=== PATIENT | female | born 1970 | race Caucasian/White ===

== ENCOUNTER 2019-06-13 16:50 | Emergency (ER) | payer BC ==
--- OUTSIDE RECORDS SUMMARY | 2019-06-13 17:11 | XMS REPORT | Continuity of Care Document ---
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 Provider Date Irritable bowel syndrome Blake Ji MD Onset: 09/21/2012 Female infertility Blake Ji MD Onset: 09/21/2012 Allergic rhinitis Ann Pendleton MD Onset: 02/26/2011 Gastric ulcer without hemorrhage, Ruthann Rowland PA-C Onset: 2018 without perforation AND without obstruction Gastro-esophageal reflux disease with Ruthann Rowland PA-C Onset: 05/18 esophagitis O/E: inspection of blood Ruthann Rowland PA-C Onset: 02/23/2019 Diarrhea Ruthann Rowland PA-C Onset: 02/23/2019 Gastroesophageal reflux disease Ruthann Rowland PA-C Onset: 02/23/2019 Social History Type Date Description Comments Sex Unknown Tobacco Use Start: Unknown End: Unknown Patient is a former smoker Smoking Status Reviewed: 05/18/19 Patient is a former smoker Allergies, Adverse Reactions, Alerts Description No Known Drug Allergies Medications Active Medications SIG Qnty Indications Ordering Provider Date Omeprazole Take 1 capsule by yanira Page 04/28/2019 20mg mouth daily. Take MD Delvis Capsules DR 30-60 minutes before a meal. Simbrinza Instill 1 Drop In Unknown 1-0.2% Each Eye Two Suspension Times A Day Immunizations CPT Code Status Date Vaccine Lot # 66029 Given 11/06/2014 MMR Vaccine, Live, For Subcutaneous Use 87963 Given 06/14/2014 Influenza Virus Vaccine, Quadrivalent, Split, Preservative Free 83828 Given 07/20/2013 Influenza Virus Vaccine Split Virus Use For Individual 3Yr Older 08198 Given 08/02/2012 Influenza Virus Vaccine Split Virus Use For Individual 3Yr Older 98890 Given 06/28/2010 Influenza Virus Vaccine Split Virus Use For Individual 3Yr Older 23751 Given 11/02/2007 Td Preservative Free For Use In Individuals 7 Yrs Or Older 27792 Given 1995 Tetanus & Diptheria Toxoids Vaccine For Intracmuscular Use Vital Signs Date Vital Result Comment 05/18/2019 9:14am Height 62.5 inches 5'2.50" Weight 121.00 lb BP Systolic 101 mmHg BP Diastolic 81 mmHg Heart Rate 83 /min BMI (Body Mass Index) 21.8 kg/m2 02/23/2019 10:43am Height 62.5 inches 5'2.50" Weight 122.00 lb BP Systolic 90 mmHg BP Diastolic 60 mmHg Heart Rate 76 /min BMI (Body Mass Index) 22.0 kg/m2 Results Test Date Facility Test Result H/L Range Note Laboratory test 04/20/2019 [facility] RESULT 1 finding Pathology Order BELOW Disaccharidase 04/20/2019 [facility] Lactase 57.9 2 Analysis Sucrase 69.1 3 Maltase 188.6 4 Palatinase 11.2 5 Interpretation See Comment 6 Laboratory test 04/20/2019 [facility] [place]otest SEE RESULT 7 finding BELOW CBC Auto Diff 02/09/2019 [facility] White Blood Count 4.1 10^3/uL Normal 3.5- 10.8 Red Blood Count 4.56 10^6/uL Normal 3.70-4.87 Hemoglobin 12.8 g/dL Normal 12.0-16.0 Hematocrit 39 % Normal 35-47 Mean Corpuscular Volume 84 fL Normal 80-97 Mean Corpuscular Hemoglobin 28 pg Normal 27-31 Mean Corpuscular HGB Conc 33 g/dL Normal 31-36 Red Cell Distribution Width 14 % Normal 10.5-15 Platelet Count 276 10^3/uL Normal 150-450 Mean Platelet Volume 7.2 fL Low 7.4-10.4 Abs Neutrophils 2.9 10^3/uL Normal 1.5-7.7 Abs Lymphocytes 0.7 10^3/uL Low 1.0-4.8 Abs Monocytes 0.3 10^3/uL Normal 0-0.8 Abs Eosinophils 0.1 10^3/uL Normal 0-0.6 Abs Basophils 0.0 10^3/uL Normal 0-0.2 Abs Nucleated RBC 0.0 10^3/uL Granulocyte % 72.2 % Lymphocyte % 16.8 % Monocyte % 7.9 % Eosinophil % 2.5 % Basophil % 0.6 % Nucleated Red Blood Cells % 0.0 Comp Metabolic Panel 02/09/2019 [facility] Sodium 140 mmol/L Normal 135-145 Potassium 4.1 mmol/L Normal 3.5-5.0 Chloride 105 mmol/L Normal 101-111 Co2 Carbon Dioxide 29 mmol/L Normal 22-32 Anion Gap 6 mmol/L Normal 2-11 Glucose 80 mg/dL Normal 70-100 Blood Urea Nitrogen 9 mg/dL Normal 6-24 Creatinine 0.71 mg/dL Normal 0.51-0.95 BUN/Creatinine Ratio 12.7 Normal 8-20 Calcium 8.8 mg/dL Normal 8.6-10.3 Total Protein 5.9 g/dL Low 6.4-8.9 Albumin 3.6 g/dL Normal 3.2-5.2 Globulin 2.3 g/dL Normal 2-4 Albumin/Globulin Ratio 1.6 Normal 1-3 Total Bilirubin 0.50 mg/dL Normal 0.2-1.0 Alkaline Phosphatase 72 U/L Normal 34-104 Alt 13 U/L Normal 7-52 Ast 17 U/L Normal 13-39 Egfr Non- 87.1 >60 Egfr 105.4 >60 8 Laboratory test finding 02/09/2019 [facility] Magnesium 1.8 mg/dL Low 1.9-2.7 TSH (Thyroid Stim Horm) 1.11 mcIU/mL Normal 0.34-5.60 Free T4 (Free Thyroxine) 0.81 ng/dL Normal 0.61-1.12 Vitamin B12 369 pg/mL Normal 180-914 9 Vitamin D Total 25(Oh) 26.5 ng/mL Normal 20-50 10 1 SEE RESULT BELOW Name: LISETTE AGUILLON : [address]: Kaylee Edmondson MD Acct: [id number] Unit: [id number] AGE: 48 Location: ENDO Re04/20/19 SEX: F Status: REG REF SPEC: [id number] YVETTE: 04/20/19- SUBM DR: Kaylee Merino MD REQ: [id number] RECD: 04/20/191143 STATUS: FREDDY HOFFMAN DR: Ann Pendleton MD _ ORDERED: LEVEL 4/5 FINAL DIAGNOSIS 1. Duodenum, biopsy: -- Benign small intestinal mucosa with no significant pathologic abnormalities. -- No evidence of villous blunting or increased intraepithelial lymphocytes. 2. Duodenum, biopsy: -- Focal active enteritis. -- No evidence of chronicity. -- No evidence of villous blunting or increased intraepithelial lymphocytes. 3. Stomach, biopsy: -- Body-type gastric mucosa with moderate chronic gastritis; see comment. -- Fundic gland polyp. 4. Esophagus, distal, biopsy: -- Benign squamous mucosa with moderate erosive changes. -- No columnar component present for evaluation. -- No evidence of eosinophilic esophagitis. 5. Esophagus, mid, biopsy: -- Benign squamous mucosa with mild erosive changes. -- No evidence of eosinophilic esophagitis. COMMENT: An H. pylori immunohistochemical stain is pending for specimen 3 and the results will be reported in an addendum. CONTINUED ON NEXT PAGE DEPARTMENT OF PATHOLOGY, [address] [place] [address] Nicholas Oliveros M.D. Director [facility] # [id number] RUN DATE: 04/21/19 [facility] LAB LIVE PAGE 2 Patient: LISETTE AGUILLON [id number] (Continued) CLINICAL HISTORY (Continued) CLINICAL HISTORY Diarrhea; gastroesophageal reflux disease; family history of celiac POST-OPERATIVE DIAGNOSIS EGD: esophagus ??? normal; regular gastroesophageal junction mid and distal biopsy; gastric ??? few polyps; 3-8 mm biopsy; ZANE test; duodenum ??? few erosions; flattening with subtle scalloping; biopsy; disacc GROSS DESCRIPTION 1. The specimen is received in formalin labeled, Duodenum Nodule Biopsy, and consists of two bella-pink irregular soft tissue fragments measuring 0.3 x 0.2 x 0.1 cm and 0.7 x 0.2 x 0.1 cm which are submitted entirely in one cassette. 2. The specimen is received in formalin labeled, Duodenum Biopsy, and consists of a 1.0 x 0.5 x 0.2 cm aggregate of bella-pink irregular soft tissue fragments which is submitted entirely in one cassette. 3. The specimen is received in formalin labeled, Gastric Polyp Biopsy, and consists of a 0.6 x 0.5 x 0.2 cm aggregate of bella-pink irregular soft tissue fragments which is submitted entirely in one cassette. 4. The specimen is received in formalin labeled, Distal Esophagus Biopsy, and consists of a 0.7 x 0.4 by up to 0.2 cm aggregate of translucent white-pink irregular soft tissue fragments which is submitted entirely in one cassette. 5. The specimen is received in formalin labeled, Mid Esophagus Biopsy, and consists of a 0.8 by up to 0.4 x 0.1 cm aggregate of translucent white-pink irregular soft tissue fragments which is submitted entirely in one cassette. Signed by and Reported on: Coco Ring MD 04/21/19 1104 END OF REPORT DEPARTMENT OF PATHOLOGY, [address] [place] [address] Nicholas Oliveros M.D. Director [facility] # [id number] SEE RESULT BELOW Name: LISETTE AGUILLON : [address]: Kaylee Edmondson MD Acct: [id number] Unit: [id number] AGE: 48 Location: ENDO Re04/20/19 SEX: F Status: REG REF SPEC: [id number] YVETTE: 04/20/19- SUBM DR: Kaylee Merino MD REQ: [id number] RECD: 04/20/19 STATUS: FREDDY HOFFMAN DR: Ann Pendleton MD _ ORDERED: LEVEL 4/5 FINAL DIAGNOSIS 1. Duodenum, biopsy: -- Benign small intestinal mucosa with no significant pathologic abnormalities. -- No evidence of villous blunting or increased intraepithelial lymphocytes. 2. Duodenum, biopsy: -- Focal active enteritis. -- No evidence of chronicity. -- No evidence of villous blunting or increased intraepithelial lymphocytes. 3. Stomach, biopsy: -- Body-type gastric mucosa with moderate chronic gastritis; see comment. -- Fundic gland polyp. 4. Esophagus, distal, biopsy: -- Benign squamous mucosa with moderate erosive changes. -- No columnar component present for evaluation. -- No evidence of eosinophilic esophagitis. 5. Esophagus, mid, biopsy: -- Benign squamous mucosa with mild erosive changes. -- No evidence of eosinophilic esophagitis. COMMENT: An H. pylori immunohistochemical stain is pending for specimen 3 and the results will be reported in an addendum. CONTINUED ON NEXT PAGE DEPARTMENT OF PATHOLOGY, [address] [place] [address] Nicholas lOiveros M.D. Director [facility] # [id number] RUN DATE: 04/21/19 [facility] LAB LIVE PAGE 2 Patient: AGUILLONLISETTE [id number] (Continued) CLINICAL HISTORY (Continued) CLINICAL HISTORY Diarrhea; gastroesophageal reflux disease; family history of celiac POST-OPERATIVE DIAGNOSIS EGD: esophagus ??? normal; regular gastroesophageal junction mid and distal biopsy; gastric ??? few polyps; 3-8 mm biopsy; ZANE test; duodenum ??? few erosions; flattening with subtle scalloping; biopsy; disacc GROSS DESCRIPTION 1. The specimen is received in formalin labeled, Duodenum Nodule Biopsy, and consists of two bella-pink irregular soft tissue fragments measuring 0.3 x 0.2 x 0.1 cm and 0.7 x 0.2 x 0.1 cm which are submitted entirely in one cassette. 2. The specimen is received in formalin labeled, Duodenum Biopsy, and consists of a 1.0 x 0.5 x 0.2 cm aggregate of bella-pink irregular soft tissue fragments which is submitted entirely in one cassette. 3. The specimen is received in formalin labeled, Gastric Polyp Biopsy, and consists of a 0.6 x 0.5 x 0.2 cm aggregate of bella-pink irregular soft tissue fragments which is submitted entirely in one cassette. 4. The specimen is received in formalin labeled, Distal Esophagus Biopsy, and consists of a 0.7 x 0.4 by up to 0.2 cm aggregate of translucent white-pink irregular soft tissue fragments which is submitted entirely in one cassette. 5. The specimen is received in formalin labeled, Mid Esophagus Biopsy, and consists of a 0.8 by up to 0.4 x 0.1 cm aggregate of translucent white-pink irregular soft tissue fragments which is submitted entirely in one cassette. Signed by and Reported on: Coco Ring MD 04/21/19 1104 END OF REPORT DEPARTMENT OF PATHOLOGY, [address] [place] [address] Nicholas Oliveros M.D. Director [facility] # [id number] SEE RESULT BELOW Name: LISETTE AGUILLON : [address]: Kaylee Edmondson MD Acct: [id number] Unit: [id number] AGE: 48 Location: ENDO Re04/20/19 SEX: F Status: DEP REF SPEC: [id number] YVETTE: 04/20/19- SUBM DR: Kaylee Merino MD REQ: [id number] RECD: 04/20/19 STATUS: FREDDY HOFFMAN DR: Ann Pendleton MD _ ORDERED: LEVEL 4/5, IMMUNO-FIRST ADDENDUM An H. pylori immunohistochemical stain, with appropriately reacting controls , was performed on sections cut from specimen 3 and is negative for Helicobacter organisms. Addendum Signed (signature on file) Coco Ring MD 1103 FINAL DIAGNOSIS 1. Duodenum, biopsy: -- Benign small intestinal mucosa with no significant pathologic abnormalities. -- No evidence of villous blunting or increased intraepithelial lymphocytes. 2. Duodenum, biopsy: -- Focal active enteritis. -- No evidence of chronicity. -- No evidence of villous blunting or increased intraepithelial lymphocytes. 3. Stomach, biopsy: -- Body-type gastric mucosa with moderate chronic gastritis; see comment. -- Fundic gland polyp. 4. Esophagus, distal, biopsy: -- Benign squamous mucosa with moderate erosive changes. -- No columnar component present for evaluation. -- No evidence of eosinophilic esophagitis. 5. Esophagus, mid, biopsy: -- Benign squamous mucosa with mild erosive changes. -- No evidence of eosinophilic esophagitis. CONTINUED ON NEXT PAGE DEPARTMENT OF PATHOLOGY, [address] [place] [address] Nicholas Oliveros M.D. Director [facility] # [id number] RUN DATE: 04/22/19 [facility] LAB LIVE PAGE 2 Patient: LISETTE AGUILLON [id number] (Continued) FINAL DIAGNOSIS (Continued) COMMENT: An H. pylori immunohistochemical stain is pending for specimen 3 and the results will be reported in an addendum. CLINICAL HISTORY Diarrhea; gastroesophageal reflux disease; family history of celiac POST-OPERATIVE DIAGNOSIS EGD: esophagus ??? normal; regular gastroesophageal junction mid and distal biopsy; gastric ??? few polyps; 3-8 mm biopsy; ZANE test; duodenum ??? few erosions; flattening with subtle scalloping; biopsy; disacc GROSS DESCRIPTION 1. The specimen is received in formalin labeled, Duodenum Nodule Biopsy, and consists of two bella-pink irregular soft tissue fragments measuring 0.3 x 0.2 x 0.1 cm and 0.7 x 0.2 x 0.1 cm which are submitted entirely in one cassette. 2. The specimen is received in formalin labeled, Duodenum Biopsy, and consists of a 1.0 x 0.5 x 0.2 cm aggregate of bella-pink irregular soft tissue fragments which is submitted entirely in one cassette. 3. The specimen is received in formalin labeled, Gastric Polyp Biopsy, and consists of a 0.6 x 0.5 x 0.2 cm aggregate of bella-pink irregular soft tissue fragments which is submitted entirely in one cassette. 4. The specimen is received in formalin labeled, Distal Esophagus Biopsy, and consists of a 0.7 x 0.4 by up to 0.2 cm aggregate of translucent white-pink irregular soft tissue fragments which is submitted entirely in one cassette. 5. The specimen is received in formalin labeled, Mid Esophagus Biopsy, and consists of a 0.8 by up to 0.4 x 0.1 cm aggregate of translucent white-pink irregular soft tissue fragments which is submitted entirely in one cassette. Signed by and Reported on: Coco Ring MD 04/21/19 1104 END OF REPORT DEPARTMENT OF PATHOLOGY, [address] [place] [address] Nicholas Oliveros M.D. Director [facility] # [id number] SEE RESULT BELOW Name: LISETTE AGUILLON : [address]: Kaylee Edmondson MD Acct: [id number] Unit: [id number] AGE: 48 Location: ENDO Re04/20/19 SEX: F Status: DEP REF SPEC: [id number] YVETTE: 04/20/19- SUBM DR: Kaylee Merino MD REQ: [id number] RECD: 04/20/19 STATUS: FREDDY HOFFMAN DR: Ann Pendleton MD _ ORDERED: LEVEL 4/5, IMMUNO-FIRST ADDENDUM An H. pylori immunohistochemical stain, with appropriately reacting controls , was performed on sections cut from specimen 3 and is negative for Helicobacter organisms. Addendum Signed (signature on file) Coco Ring MD 1103 FINAL DIAGNOSIS 1. Duodenum, biopsy: -- Benign small intestinal mucosa with no significant pathologic abnormalities. -- No evidence of villous blunting or increased intraepithelial lymphocytes. 2. Duodenum, biopsy: -- Focal active enteritis. -- No evidence of chronicity. -- No evidence of villous blunting or increased intraepithelial lymphocytes. 3. Stomach, biopsy: -- Body-type gastric mucosa with moderate chronic gastritis; see comment. -- Fundic gland polyp. 4. Esophagus, distal, biopsy: -- Benign squamous mucosa with moderate erosive changes. -- No columnar component present for evaluation. -- No evidence of eosinophilic esophagitis. 5. Esophagus, mid, biopsy: -- Benign squamous mucosa with mild erosive changes. -- No evidence of eosinophilic esophagitis. CONTINUED ON NEXT PAGE DEPARTMENT OF PATHOLOGY, [address] [place] [address] Nicholas Oliveros M.D. Director [facility] # [id number] RUN DATE: 04/22/19 [facility] LAB LIVE PAGE 2 Patient: LISETTE AGUILLON [id number] (Continued) FINAL DIAGNOSIS (Continued) COMMENT: An H. pylori immunohistochemical stain is pending for specimen 3 and the results will be reported in an addendum. CLINICAL HISTORY Diarrhea; gastroesophageal reflux disease; family history of celiac POST-OPERATIVE DIAGNOSIS EGD: esophagus ??? normal; regular gastroesophageal junction mid and distal biopsy; gastric ??? few polyps; 3-8 mm biopsy; ZANE test; duodenum ??? few erosions; flattening with subtle scalloping; biopsy; disacc GROSS DESCRIPTION 1. The specimen is received in formalin labeled, Duodenum Nodule Biopsy, and consists of two bella-pink irregular soft tissue fragments measuring 0.3 x 0.2 x 0.1 cm and 0.7 x 0.2 x 0.1 cm which are submitted entirely in one cassette. 2. The specimen is received in formalin labeled, Duodenum Biopsy, and consists of a 1.0 x 0.5 x 0.2 cm aggregate of bella-pink irregular soft tissue fragments which is submitted entirely in one cassette. 3. The specimen is received in formalin labeled, Gastric Polyp Biopsy, and consists of a 0.6 x 0.5 x 0.2 cm aggregate of bella-pink irregular soft tissue fragments which is submitted entirely in one cassette. 4. The specimen is received in formalin labeled, Distal Esophagus Biopsy, and consists of a 0.7 x 0.4 by up to 0.2 cm aggregate of translucent white-pink irregular soft tissue fragments which is submitted entirely in one cassette. 5. The specimen is received in formalin labeled, Mid Esophagus Biopsy, and consists of a 0.8 by up to 0.4 x 0.1 cm aggregate of translucent white-pink irregular soft tissue fragments which is submitted entirely in one cassette. Signed by and Reported on: Coco Ring MD 04/21/19 1104 END OF REPORT DEPARTMENT OF PATHOLOGY, [address] [place] [address] Nicholas Oliveros M.D. Director [facility] # [id number] 2 REFERENCE VALUE Range 24.5 +/- 8.0 Abnormal <15.0 Units = uM/min/gram protein 3 REFERENCE VALUE Range 54.4 +/- 25.4 Abnormal <25.0 Units = uM/min/gram protein 4 REFERENCE VALUE Range 160.8 +/- 62.8 Abnormal <100.0 Units = uM/min/gram protein 5 REFERENCE VALUE Range 11.1 +/- 6.5 Abnormal <5.0 Units = uM/min/gram protein 6 The intestinal biopsy from this patient had normal disaccharidase activities. Test Performed by: [employer] [facility] [place] [address] 7 SEE RESULT BELOW Name: LISETTE AGUILLON : [address]: Kaylee Edmondson MD Acct: [id number] Unit: [id number] AGE: 48 Location: ENDO Re04/20/19 SEX: F Status: REG REF SPEC: [id number] YVETTE: 04/20/19-1124 [facility] DR: Kaylee Merino MD REQ: [id number] RECD: 04/20/19 STATUS: GEM HOFFMAN DR: Ann Pendleton MD _ SOURCE: GAS ANTRUM [facility]: ORDERED: Clotest Procedure Result Reported Site Clotest Final 04/21/19- 729 ML Clotest Negative * ML - Main Lab . END OF REPORT DEPARTMENT OF PATHOLOGY, [address] [place] [address] Nicholas Oliveros M.D. Director [facility] # [id number] SEE RESULT BELOW Name: LISETTE AGUILLON : [address]: Kaylee Edmondson MD Acct: [id number] Unit: [id number] AGE: 48 Location: ENDO Re04/20/19 SEX: F Status: REG REF SPEC: [id number] YVETTE: 04/20/[address]: Kaylee Merino MD REQ: [id number] RECD: 04/20/19 STATUS: GEM HOFFMAN DR: Ann Pendleton MD _ SOURCE: GAS ANTRUM SPDESC: ORDERED: Clotest Procedure Result Reported Site Clotest Final 04/21/19- 729 ML Clotest Negative * ML - Main Lab . END OF REPORT DEPARTMENT OF PATHOLOGY, [address] [place] [address], [place] [address] Nicholas Oliveros M.D. Director [facility] # [id number] 8 Because ethnic data is not always readily available, this report includes an eGFR for both -Americans and non- Americans. The National Kidney Disease Education Program (NKDEP) does not endorse the use of the MDRD equation for patients that are not between the ages of 18 and 70, are , have extremes of body size, muscle mass, or nutritional status, or are non- or non-. According to the National Kidney Foundation, irrespective of diagnosis, the stage of the disease is based on the level of kidney function: Stage Description GFR(mL/min/1.73 m(2)) 1 Kidney damage with normal or decreased GFR 90 2 Kidney damage with mild decrease in GFR 60-89 3 Moderate decrease in GFR 30-59 4 Severe decrease in GFR 15-29 5 Kidney failure <15 (or dialysis) 9 Normal Range 180 to 914 Indeterminate Range 145 to 180 Deficient Range <145 10 Total 25-Hydroxyvitamin D2 and D3 (25-OH-VitD) <10 ng/mL (severe deficiency) 10-19 ng/mL (mild to moderate deficiency) 20-50 ng/mL (optimum levels) 51-80 ng/mL (increased risk of hypercalciuria) >80 ng/mL (toxicity possible) Procedures Date Code Description Status 04/20/2019 12440 Moderate Sedation Services; Same Phys Each Additional 15 Completed Mins 04/20/2019 10321 Moderate Sedation Services; Same Phys Intl 15 Mins; PT >= Completed 5 Years 04/20/2019 74567 EGD+Biopsy Single Or Multiple Completed Medical Devices Description No Information Available Encounters Type Date Location Provider Dx Diagnosis Office Visit 02/23/2019 Gastroenterology Ruthann Collier K21.9 Gastro- esophageal 10:30a [facility] [place] Row[place] PA-C reflux disease without esophagitis R19.7 Diarrhea, unspecified R77.0 Abnormality of albumin Assessments Date Code Description Provider 05/18/2019 K21.0 Gastro-esophageal reflux disease with Ruthann Rowland PA-C esophagitis 05/18/2019 K25.9 Gastric ulcer, unspecified as acute or Ruthann Rowland PA-C chronic, without hemorrhage or perforation 05/18/2019 R19.7 Diarrhea, unspecified Ruthann Rowland PA-C 04/20/2019 R19.7 Diarrhea, unspecified Kaylee Edmondson MD 04/20/2019 K21.0 Gastro-esophageal reflux disease with Kaylee Edmondson MD esophagitis 04/20/2019 K25.9 Gastric ulcer, unspecified as acute or Kaylee Edmondson MD chronic, without hemorrhage or perforation 02/23/2019 K21.9 Gastro-esophageal reflux disease without Ruthann Rowland PA-C esophagitis 02/23/2019 R19.7 Diarrhea, unspecified Ruthann Rowland PA-C 02/23/2019 R77.0 Abnormality of albumin Ruthann Rowland PA-C Plan of Treatment No Information Available Functional Status Description No Information Available Mental Status Description No Information Available Referrals Description No Information Available
--- OUTSIDE RECORDS SUMMARY | 2019-06-13 17:11 | XMS REPORT | Continuity of Care Document ---
:1970 External Reference #:[id number] Author Name Ran Sullivan M.D. Address [address] [place] [address] Care Team Providers Name Role Phone Fred Varner O.D. Care Team Information [employer] Sales Consultant [phone] Ann Pendleton M.D. Care Team Information [employer] Sales Consultant [phone] Problems Active Problems Provider Date Tear film insufficiency Ran Sullivan M.D. Onset: 06/06/2019 Myopia Ran Sullivan M.D. Onset: 03/02/2019 Social History Type Date Description Comments Sex Unknown Tobacco Use Start: Unknown End: Quit 20 YEARS AGO ---4 Unknown PACKS/DAY ETOH Use Currently consumes alcohol 4-5 DAYS/WEEK Tobacco Use Start: Unknown End: Patient is a former smoker Unknown Smoking Status Reviewed: 06/06/19 Patient is a former smoker Allergies, Adverse Reactions, Alerts Active Allergies Reaction Severity Comments Date Seasonal Sneezing,Sinus Swelling, Runny Eyes 01/11/2019 Onion/Garlic Powder Itchy 01/11/2019 Medications Active Medications SIG Qnty Indications Ordering Provider Date Artificial Tears PF as needed Ran Escalante 06/06/2019 Rachel Sullivan 0.1-0.3% Solution Timolol Maleate 1 drop both eyes 5ml H52.13 Ran Escalante 06/06/2019 0.5% in the morning Rachel Sullivan (Daily) Solution B Complex-B12 Unknown Tablets Dha Brixey 3 Unknown 100mg Capsules D3 High Potency Unknown 1000Unit Capsules Omeprazole 1 by mouth every Unknown 20mg Capsules day DR History Medications Simbrinza 1 drop both eyes 8units Ran Escalante 06/06/2019 - 1-0.2% 2 times per day Rachel Sullivan 06/05/2019 Suspension Tobradex 1 drop four times 5ml Ran Escalante 02/02/2019 - 0.3-0.1% per day both eyes Rcahel Sullivan 02/17/2019 Suspension Valium 1 tablet every 3 3tabs Ran Escalante 02/02/2019 - 5mg Tablets hours as needed Rachel Sullivan 02/11/2019 for anxiety Hydrocodone-Acetamin 1 by mouth every 3tabs Ran Escalante 02/02/2019 - ophen 4-6 hours as Rachel Sullivan 02/11/2019 5-325mg Tablets needed for pain Immunizations Description No Information Available Vital Signs Date Vital Result Comment 06/06/2019 11:39am Intraocular Pressure Right Eye 14 mmHg Intraocular Pressure Left Eye 14 mmHg -JW, Applanation 11:44 Am Results Description No Information Available Procedures Date Code Description Status 06/06/2019 68475 Punctum Closure By Plug - One Eye Completed 06/06/2019 11030 Punctum Closure By Plug - One Eye Completed Medical Devices Description No Information Available Encounters Description No Information Available Assessments Date Code Description Provider 06/06/2019 H04.123 Dry eye syndrome of bilateral lacrimal Ran Sullivan M.D. glands 06/06/2019 H52.13 Myopia, bilateral Ran Sullivan M.D. 03/02/2019 H52.13 Myopia, bilateral Ran Sullivan M.D. 02/11/2019 H52.13 Myopia, bilateral Ran Sullivan M.D. 02/10/2019 H52.13 Myopia, bilateral Ran Sullivan M.D. 01/12/2019 H52.13 Myopia, bilateral Ran Sullivan M.D. Plan of Treatment 06/06/2019 - Ran Sullivan M.D.H04.123 Dry eye syndrome of bilateral lacrimal glandsComments:Discussed with patient silicone punctal plug placement and risks, benefits and alternatives including but not limited to punctal cautery, closure of eyelids, continued use of artificial tears and/or ointment, Restasis eye drops, and no treatment. Patient understands. All questions answered. Patient desires silicone punctal plug placement right lower lid and left lower lid.H52.13 Myopia, bilateralNew Medication:Timolol Maleate 0.5 % ( Daily) - 1 drop both eyes in the morningComments:Follow Stop Simbrinza and start Timolol 1 drop both eyes 1 xday.Follow up:See Dr. Varner for IOP check 1 month. 3 months dilate with RWW Functional Status Description No Information Available Mental Status Description No Information Available Referrals Description No Information Available
--- NOTE | 2019-06-13 17:36 | ED ---
HPI Chest Pain - HPI Summary HPI Summary: The patient is 48 y/o F presenting to [facility] with a chief complaint of pain in the right chest wall onset four days ago. She reports that she has been sick for a few months without this pain, but when the pain began, she went to [facility] , where she was told she had PNA and was given Azithromycin without having a chest x-ray. Her pain was not improving with the medications, so she called her PCPs office who told her that if she wasnt improving by today, she should be re-evaluated. 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 She states that she hasnt had a fall recently. She additionally notes shes had diarrhea since starting the course of antibiotics. She denies any lethargy. Currently, her symptoms are rated 6/10 in severity. PMHx: none. FHx: breast cancer in mother. Nonsmoker, rare EtOH, no substance use. Medications reviewed. Allergies noted. - History of Current Complaint Chief Complaint: EDChestWallPain Time Seen by Provider: 06/13/19 17:24 Hx Obtained From: Patient Onset/Duration: Started Days Ago - four, Still Present Timing: Lasting Days Initial Severity: Mild Current Severity: Moderate Pain Intensity: 6 Pain Scale Used: 0-10 Numeric Chest Pain Location: Right Lateral Chest Pain Radiates: No Character: Dull/Aching Aggravating Factor(s): Nothing Alleviating Factor(s): Nothing Associated Signs and Symptoms: Positive: Other: - diarrhea. Negative: lethargy - Allergy/Home Medications Allergies/Adverse Reactions: Allergies Allergy/AdvReac Type Severity Reaction Status Date / Time No Known Allergies Allergy Verified 04/13/19 09:16 PMH/Surg Hx/FS Hx/Imm Hx Endocrine/Hematology History: Denies: Hx Diabetes Cardiovascular History: Denies: Hx Hypercholesterolemia, Hx Hypertension - Cancer History Hx Chemotherapy: No Hx Radiation Therapy: No - Surgical History Surgical History: None Surgery Procedure, Year, and Place: none Infectious Disease History: No Infectious Disease History: Denies: Traveled Outside the [place] in Last 30 Days - Family History Known Family History: Positive: Other - breast cancer in mother - Social History Alcohol Use: Rare Hx Substance Use: No Substance Use Type: Reports: None Hx Tobacco Use: No Smoking Status (MU): Never Smoked Tobacco Review of Systems Positive: Other - lethargy Positive: Diarrhea Positive: Other - chest wall pain on right side All Other Systems Reviewed And Are Negative: Yes Physical Exam - Summary Physical Exam Summary: VITAL SIGNS: Reviewed. GENERAL: Patient is a well-developed and nourished female who is lying comfortable in the stretcher. Patient is not in any acute respiratory distress. HEAD AND FACE: No signs of trauma. No ecchymosis, hematomas or skull depressions. No sinus tenderness. EYES: PERRLA, EOMI x 2, No injected conjunctiva, no nystagmus. EARS: Hearing grossly intact. Ear canals and tympanic membranes are within normal limits. MOUTH: Oropharynx within normal limits. NECK: Supple, trachea is midline, no adenopathy, no JVD, no carotid bruit, no c- spine tenderness, neck with full ROM. CHEST: Symmetric, mild tenderness in the right lateral ribs. LUNGS: Clear to auscultation bilaterally. No wheezing or crackles. CVS: Regular rate and rhythm, S1 and S2 present, no murmurs or gallops appreciated. ABDOMEN: Soft, non-tender. No signs of distention. No rebound, no guarding, and no masses palpated. Bowel sounds are normal. EXTREMITIES: FROM in all major joints, no edema, no cyanosis or clubbing. NEURO: Alert and oriented x 3. No acute neurological deficits. Speech is normal and follows commands. SKIN: Dry and warm. Triage Information Reviewed: Yes Vital Signs On Initial Exam: Initial Vitals Temp Pulse Resp BP Pulse Ox 97.6 F 68 20 94/66 100 06/13/19 16:52 06/13/19 16:52 06/13/19 16:52 06/13/19 16:52 06/13/19 16:52 Vital Signs Reviewed: Yes Procedures - Sedation Patient Received Moderate/Deep Sedation with Procedure: No Diagnostics - Vital Signs Vital Signs Temp Pulse Resp BP Pulse Ox 06/13/19 16:52 97.6 F 68 20 94/66 100 - Laboratory Lab Statement: Any lab studies that have been ordered have been reviewed, and results considered in the medical decision making process. - Radiology Ribs w/ Chest X-ray Radiology Interpretation Completed By: Radiologist Summary of Radiographic Findings: Impression: No evidence for fracture. ED physician has reviewed this report. Re-Evaluation - Re-Evaluation First Eval Re-Evaluation Time: 18:45 Change: Unchanged Comment: We discussed all results and plan for discharge home. Chest Pain Course/Dx - Course Assessment/Plan: Patient is a 48 y/o F with chief complaint of right chest wall pain onset four days ago with concern for fractured rib after no improvement with antibiotics for possible pneumonia. Rib x ray IMPRESSION: No evidence for fracture. X-ray shows no fracture dislocation. I believe that the patient has musculoskeletal pain. The patient does not have any chest pain, she denies any shortness of breath, and she is not tachycardic or hypoxic. she denies any recent traveling, no known drugs. The Wells criteria for PE is 0. I discussed all the findings and test results with the patient. Patient was instructed to return to the emergency room immediately if any of the symptoms return or worsen. Plan of care was discussed with the patient and understands and agrees. All questions were answered at patient satisfaction. There were no further complaints or concerns. Lung exam before discharge: CTA B/L. Good air exchange. No wheezing or crackles heard. CVS: S1 and S2 present. No murmurs appreciated. Patient is alert and oriented x 3. Patient is hemodynamically stable. Patient will be discharged home with follow up system safety engineer in the next 2-3 days. - Diagnoses Provider Diagnoses: Rib pain on right side Discharge ED - Sign-Out/Discharge Documenting (check all that apply): Patient Departure - Patient will be discharged home. - Discharge Plan Condition: Good Disposition: HOME Prescriptions: Naproxen [Naproxen 500 mg tab] 500 mg PO BID #30 tablet Patient Education Materials: Chest Wall Pain (ED) Referrals: Ann Pendleton MD [Primary Care Provider] - 3 Days Additional Instructions: Follow up with your primary care provider in 2-3 days. Return to the emergency department for any new or worsening symptoms. - Billing Disposition and Condition Condition: GOOD Disposition: Home - Attestation Statements Document Initiated by Scribe: Yes Documenting Scribe: Brynn Carreno Provider For Whom Lilliam is Documenting (Include Credential): Dr. Boom Ambriz MD Scribe Attestation: Brynn Hines scribed for Dr. Boom Ambriz MD on 06/14/19 at 1850. Scribe Documentation Reviewed: Yes Provider Attestation: The documentation as recorded by the scribe, Brynn Carreno accurately reflects the service I personally performed and the decisions made by me, Dr. Boom Ambriz MD Status of Lilliam Document: Viewed
[2019-06-13] MEDS ORDERED: Ibuprofen TAB* 800 MG PO ONE (18:50)
[2019-06-13 19:21] VITALS: BP 122/71
== END 2019-06-13 19:10 | disposition home or self-care (01) ==
LOC: ED 16:50
DX: R07.81 Pleurodynia (principal); Z79.899 Other long term (current) drug therapy
CPT/HCPCS: 99282